=== PATIENT | male | born 1985 | race Caucasian/White ===

== ENCOUNTER 2020-06-30 07:11 | Emergency (ER) | payer MEDICARE, OTHER ==
[~2020-06-30] VITALS: Ht 167.6 cm; Wt 75.5 kg
[2020-06-30 07:15] VITALS: BP 149/82
--- NOTE | 2020-06-30 07:59 | NUR ---
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
[2020-06-30] MEDS ORDERED: KETOROLAC 30 MG/1 ML IM ONE (09:00)
[2020-06-30] MEDS ORDERED: KETOROLAC 60 MG/2 ML ONE (09:17)
== END 2020-06-30 09:35 | disposition home or self-care (01) ==
LOC: ED 08:56
DX: S39.012A Strain of muscle, fascia and tendon of lower back, initial encounter (principal); S16.1XXA Strain of muscle, fascia and tendon at neck level, initial encounter; V89.2XXA Person injured in unspecified motor-vehicle accident, traffic, initial encounter; Y93.89 Activity, other specified; Y92.481 Parking lot as the place of occurrence of the external cause; Y99.8 Other external cause status
CPT/HCPCS: 96372; 99283; J1885